=== PATIENT | female | born 1970 | race Caucasian/White ===

== ENCOUNTER 2016-05-25 11:03 | Emergency (ER) | payer BC ==
[2016-05-25 11:24] VITALS: BP 154/81
[2016-05-25] MEDS ORDERED: Ibuprofen TAB* 400 MG PO ONE (11:48)
--- NOTE | 2016-05-25 12:30 | ED ---
Upper Extremity Pain - HPI Summary HPI Summary: Patient was lifting a gate last night when her hand slipped and she struck the back of her left hand against the metal. She has immediate pain, but thought it would improve. This AM the hand was swollen and bruised, and she had pain when moving the digits. She has not taken any medication for pain or swelling today. She is right handed and denies previous injury to this hand. No N/T. - History of Current Complaint Chief Complaint: EDExtremityUpper Stated Complaint: HAND INJURY Time Seen by Provider: 05/25/16 11:24 Hx Obtained From: Patient Mechanism Of Injury: Blunt Trauma Onset/Duration: Started Hours Ago Timing: Constant Severity Initially: Moderate Severity Currently: Severe Pain Location: Hand - left Character: Sharp, Aching, Stiffness Aggravating Factor(s): Movement Alleviating Factor(s): Rest Associated Signs & Symptoms: Positive: Swelling, Bruising. Negative: Weakness, Numbness/Tingling Related History: Dominant Hand Right - Allergies/Home Medications Allergies/Adverse Reactions: Allergies Allergy/AdvReac Type Severity Reaction Status Date / Time No Known Allergies Allergy Verified 05/25/16 11:19 PMH/Surg Hx/FS Hx/Imm Hx Previously Healthy: Yes Infectious Disease History: No Infectious Disease History: Denies: Traveled Outside the [place] in Last 30 Days - Family History Known Family History: Positive: None - Social History Occupation: Employed Full-time Lives: With Family Alcohol Use: Occasionally Substance Use Type: Reports: None Smoking Status (MU): Never Smoked Tobacco Review of Systems Positive: Myalgia, Decreased ROM, Edema - dorsum of left hand Positive: Bruising - dorsum of left hand Negative: Weakness, Paresthesia, Numbness All Other Systems Reviewed And Are Negative: Yes Physical Exam Triage Information Reviewed: Yes Vital Signs On Initial Exam: Initial Vitals Temp Pulse Resp BP Pulse Ox 98.2 F 56 16 154/81 100 05/25/16 11:05 05/25/16 11:05 05/25/16 11:05 05/25/16 11:05 05/25/16 11:05 Vital Signs Reviewed: Yes Appearance: Positive: Well-Appearing, Pain Distress, Obese Skin: Positive: Warm, Skin Color Reflects Adequate Perfusion, Dry, Tender - edema and ecchymosis in noted on the dorsum of the left hand on the ulnar aspect over 3-5 metacarpals, Soft Head/Face: Positive: Normal Head/Face Inspection Eyes: Positive: EOMI, VAMSI, Conjunctiva Clear ENT: Positive: Hearing grossly normal Respiratory/Lung Sounds: Positive: Breath Sounds Present Cardiovascular: Positive: Bradycardia Musculoskeletal: Positive: Limited @ - she is able to form a full loose fist and move all digits with pain, Pain @ - TTP 3-5 metacarpals; non-tender over DRUJ or 1-2 metacarpals, Edema Left Neurological: Positive: Sensory/Motor Intact, Alert, Oriented to Person Place, Time, NV Bundle Intact Distally Psychiatric: Positive: Affect/Mood Appropriate AVPU Assessment: Alert Procedures - Splinting Location: left fifth metacarpal Hand-Made Type: orthoglass Splint: ulnar - ulnar gutter Pre-Proc Neuro Vasc Exam: normal Post-Proc Neuro Vasc Exam: normal Diagnostics - Vital Signs Vital Signs Temp Pulse Resp BP Pulse Ox 05/25/16 11:05 98.2 F 56 16 154/81 100 - Laboratory Lab Statement: Any lab studies that have been ordered have been reviewed, and results considered in the medical decision making process. - Radiology No standard instances Xray Interpretation: Positive (See Comments) Radiology Interpretation Completed By: ED Physician - Non-displaced fracture of the left fifth metacarpal Course/Dx - Diagnoses Differential Diagnosis/HQI/PQRI: Positive: Arthritis, Bursitis, Contusion, Fracture (Closed), Hematoma, Laceration, Strain, Sprain Provider Diagnoses: Fracture of fifth metacarpal bone Discharge - Discharge Plan Condition: Stable Disposition: HOME Patient Education Materials: Hand Fracture (ED) Referrals: Eneida Hussein MD [Medical Doctor] - Additional Instructions: Wear your splint at all times to protect your fracture. Elevate your hand above your heart to decrease swelling and pain. Use ibuprofen 600mg three times daily with meals for the next 5-7 days to decrease swelling and pain as well. Call Dr. Hussein's office on Friday for an appointment for evaluation. Return to the emergency department if your symptoms worsen.
--- NOTE | 2016-05-25 12:45 | RAD ---
INDICATION: LEFT third, fourth, and fifth proximal digit and hand pain. COMPARISON: None. TECHNIQUE: AP, lateral, and oblique views LEFT hand. REPORT: Suggestion of a nondisplaced fracture at the distal diaphysis and distal metaphysis of the fifth metacarpal. No additional fractures evident. Normal articular alignment. Nonfocal mild soft tissue swelling. IMPRESSION: Suggestion of a nondisplaced hairline fracture at the distal diaphysis and distal metaphysis of the fifth metacarpal.
== END 2016-05-25 14:01 | disposition home or self-care (01) ==
LOC: ED 11:03
DX: S62.397A Other fracture of fifth metacarpal bone, left hand, initial encounter for closed fracture (principal); W22.8XXA Striking against or struck by other objects, initial encounter; Y92.9 Unspecified place or not applicable
CPT/HCPCS: 29130; 99282; A9270-GY

== ENCOUNTER 2018-10-04 14:19 | Emergency (ER) | payer BC ==
[2018-10-04 15:57] VITALS: BP 137/81
--- NOTE | 2018-10-05 06:12 | ED ---
Upper Extremity Pain - HPI Summary HPI Summary: Patient's 48-year-old female presenting to the ED with right arm pain. She states she feels she cannot the arm caught in a cattle gait last week and since that time it has been throbbing intermittently, worse at night. She denies any limitations with range of motion. Worsening pain to the right elbow, mostly to the antecubital fossa and just medial to this. Also endorsing intermittent numbness and tingling to the fourth and little finger. This is not persistent. Denies color or temperature changes. She denies any pain currently and states it comes and goes. Worse with supination and pronation, better with rest. Patient is able to flex and extend at the elbow, wrist and shoulder joint without discomfort. 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 Mechanism Of Injury: Other - possibly entrapment (brief) by cattle gate Onset/Duration: Started Hours Ago Timing: Constant Severity Initially: Mild Severity Currently: Mild Pain Location: Elbow, Forearm Character: Aching Aggravating Factor(s): Lifting, Flexion, Extension, Twisting Alleviating Factor(s): Rest Associated Signs & Symptoms: Negative: Swelling, Redness, Bruising, Numbness/ Tingling - Risk Factors Non-Orthopedic Risk Factor: Negative DVT Risk Factors: Negative Septic Arthritis Risk Factor: Negative Compartment Syndrome Risk Factors: Pain - Allergies/Home Medications Allergies/Adverse Reactions: Allergies Allergy/AdvReac Type Severity Reaction Status Date / Time No Known Allergies Allergy Verified 10/04/18 14:35 PMH/Surg Hx/FS Hx/Imm Hx Previously Healthy: Yes - Immunization History Hx Pertussis Vaccination: No Immunizations Up to Date: Yes Infectious Disease History: No Infectious Disease History: Denies: Traveled Outside the [place] in Last 30 Days - Family History Known Family History: Positive: None - Social History Occupation: Employed Full-time Lives: With Family Alcohol Use: Rare Hx Substance Use: No Substance Use Type: Reports: None Hx Tobacco Use: Yes Smoking Status (MU): Heavy Every Day Tobacco Smoker Review of Systems Constitutional: Negative Negative: Fever, Fatigue, Skin Diaphoresis Negative: Palpitations, Chest Pain Negative: Abdominal Pain, Vomiting, Diarrhea Genitourinary: Negative Positive: no symptoms reported, see HPI Positive: Arthralgia, Myalgia. Negative: Decreased ROM, Edema Skin: Negative Neurological: Negative All Other Systems Reviewed And Are Negative: Yes Physical Exam Triage Information Reviewed: Yes Vital Signs On Initial Exam: Initial Vitals Temp Pulse Resp BP Pulse Ox 97.8 F 53 14 142/73 96 10/04/18 14:32 10/04/18 14:32 10/04/18 14:32 10/04/18 14:32 10/04/18 14:32 Vital Signs Reviewed: Yes Appearance: Positive: Well-Appearing, No Pain Distress Skin: Positive: Skin Color Reflects Adequate Perfusion, Other - pulses +2 intact Eyes: Positive: EOMI, VAMSI, Conjunctiva Clear Neck: Positive: No Lymphadenopathy Respiratory/Lung Sounds: Positive: Clear to Auscultation, Breath Sounds Present Cardiovascular: Positive: RRR, Pulses are Symmetrical in both Upper and Lower Extremities Musculoskeletal: Positive: Pain @ - medial elbow/ulner nerve without entrapment sxs Neurological: Positive: Speech Normal Psychiatric: Positive: Affect/Mood Appropriate Diagnostics - Vital Signs Vital Signs Temp Pulse Resp BP Pulse Ox 10/04/18 15:56 97.2 F 52 16 137/81 99 10/04/18 14:32 97.8 F 53 14 142/73 96 - Laboratory Lab Statement: Any lab studies that have been ordered have been reviewed, and results considered in the medical decision making process. Course/Dx - Course Course Of Treatment: On physical examination, patient denies any pain to palpation over the hand, forearm, upper arm, elbow or shoulder. There is no evidence of discoloration or temperature changes. 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 Thumb opposition intact. Full flexion and extension at the MCP, wrist, elbow, shoulder without discomfort. No swelling noted. No evidence of trauma. Shoulder exam normal, Neer test empty can test negative. Patient endorsing pain on deep palpation to the medial elbow with some intermittent numbness and tingling to the fourth and little finger on the ipsilateral side. Again, no color temperature changes are noted with deep palpation. Good cap refill. No limitations with range of motion throughout the full extremity. No evidence of compartment syndrome. Discussed with patient she may have injured the ulnar nerve with recent trauma vs. medial/golfers elbow tendinitis causing discomfort. Encouraged ibuprofen, given steroids and ice. She will be given 2 days pain medicine and will f/u with ortho. - Diagnoses Differential Diagnosis/HQI/PQRI: Positive: Fracture (Closed), Strain, Sprain, Other - golfers elbow, tendinitis, hyperextension discomfort, nerve injury, tendonopathy Provider Diagnoses: Tendinopathy, Elbow pain Discharge - Sign-Out/Discharge Documenting (check all that apply): Patient Departure Patient Received Moderate/Deep Sedation with Procedure: No - Discharge Plan Condition: Stable Disposition: HOME Prescriptions: predniSONE TAB* [Deltasone TAB*] 50 mg PO DAILY #5 tab MDD 1 traMADol TAB* [Ultram*] 50 mg PO Q8H PRN #6 tab MDD 3 PRN Reason: Pain Referrals: Eneida Hussein MD [Medical Doctor] - Session Deon ALVES [Primary Care Provider] - Additional Instructions: Please follow up with Dr. Hussein or ortho Ibuprofen 600mg three times daily Ice and heat intermittently Tramadol 50mg three times daily as needed or just before bed Prednisone once daily x 5 days - take in the morning - Billing Disposition and Condition Condition: STABLE Disposition: Home
== END 2018-10-04 15:56 | disposition home or self-care (01) ==
LOC: ED 14:19
DX: M77.9 Enthesopathy, unspecified (principal); F17.210 Nicotine dependence, cigarettes, uncomplicated
CPT/HCPCS: 99282